=== PATIENT | female | born 1955 | race Caucasian/White ===

== ENCOUNTER 2021-07-01 10:10 | Inpatient (IN) | payer SELFPAY ==
[2021-07-01 11:10] LABS: #Lymphocytes 1.2 thou/uL (1.20-3.40); #Monocytes 0.6 thou/uL (0.11-0.59); #Neutrophils 2.8 thou/uL (1.40-6.50); %Basophils 0.5 % (0.0-1.0); %Eosinophils 0.5 % (0.0-10.0); %Lymphocytes 26.5 % (21.0-51.0); %Monocytes 12.1 % (0.0-10.0); %Neutrophils 60.4 % (42.0-75.0); Hemoglobin 9.2 g/dL (12.0-16.0); Mean Corpuscular HGB CONC 32.3 g/dL (32.0-36.0); Mean Corpuscular Hemoglobin 36.4 pg (27.0-31.0); Mean Platelet Volume 9.3 fL (7.4-10.4); Platelet Count 91 thou/uL (130-400); RBC Distribution Width 17.6 % (11.5-14.5); Red Blood Cell (RBC) Count 2.52 mill/uL (4.20-5.40); White Blood Cell (WBC) Count 4.6 thou/uL (4.8-10.8)
[2021-07-01 11:30] LABS: ALT (SGPT) 29 U/L (8-55); AST (SGOT) 62 U/L (5-34); Albumin 2.4 g/dL (3.4-4.8); Alkaline Phosphatase 97 U/L (40-110); Anion Gap 13 mmol/L (10-20); BUN (Urea Nitrogen) 20 mg/dL (9.8-20.1); Bilirubin, Total 5.7 mg/dL (0.2-1.2); Calc. Creatinine Clearance 0 mL/min (70-130); Calcium 8.7 mg/dL (7.8-10.44); Carbon Dioxide 21 mmol/L (23-31); Chloride 101 mmol/L (98-107); Globulin 4.5 g/dL (2.4-3.5); Glucose 100 mg/dL (80-115); Lipase 22 U/L (8-78); Potassium 4.1 mmol/L (3.5-5.1); Protein, Total 6.9 g/dL (5.8-8.1); Sodium 131 mmol/L (136-145)
[2021-07-01] MEDS ORDERED: Ondansetron PF 4 MG/2 ML Vial ONE (11:40)
[2021-07-01 11:44] LABS: MDiff Complete? YES; Macrocytosis MODERATE=16-30 cells (100X) (0-5/hpf); Platelet Morphology Comment Appears Decreased; Polychromasia MODERATE = 3-4 cells (100X) (0-2/hpf)
[2021-07-01 12:02] LABS: INR-International Normal Ratio 1.6; PTT 42.7 sec (22.9-36.1); Prothrombin Time 19.3 sec (12.0-14.7)
[2021-07-01 12:08] LABS: Anion Gap 15 mmol/L (10-20); BUN (Urea Nitrogen) 18 mg/dL (9.8-20.1); Calc. Creatinine Clearance 0 mL/min (70-130); Calcium 8.6 mg/dL (7.8-10.44); Carbon Dioxide 17 mmol/L (23-31); Chloride 101 mmol/L (98-107); Glucose 97 mg/dL (80-115); Potassium 4.3 mmol/L (3.5-5.1); Sodium 129 mmol/L (136-145)
[2021-07-01 12:32] LABS: CKMB 4.1 ng/mL (0-6.6)
[2021-07-01] MEDS ORDERED: Furosemide 20 MG/2 ML VIAL SLOW IVP SCH (14:15)
[2021-07-01] MEDS ORDERED: Ondansetron ODT 8 MG TAB SL PRN (14:15)
[2021-07-01] MEDS ORDERED: Furosemide 20 MG/2 ML VIAL ONE (14:40)
[2021-07-01 17:24] VITALS: BMI 39.8
[2021-07-01] MEDS: Albumin 25% 25 GM/100 ML BOT IVPB SCH (17:34)
[2021-07-01 19:39] LABS: SARS-CoV-2 PCR by NAA Not Detected (NotDetected)
[2021-07-01 21:14] LABS: Troponin I 0.041 ng/mL (< 0.028)
[2021-07-02] MEDS: Albumin 25% 25 GM/100 ML BOT IVPB SCH ×4 (00:23→17:23)
[2021-07-02] MEDS: Furosemide 20 MG/2 ML VIAL SLOW IVP SCH ×2 (05:13→14:10)
[2021-07-02 05:24] LABS: #Lymphocytes 0.8 thou/uL (1.20-3.40); #Monocytes 0.4 thou/uL (0.11-0.59); #Neutrophils 1.8 thou/uL (1.40-6.50); %Basophils 0.3 % (0.0-1.0); %Eosinophils 1.3 % (0.0-10.0); %Lymphocytes 27.4 % (21.0-51.0); %Monocytes 12.9 % (0.0-10.0); Hemoglobin 7.2 g/dL (12.0-16.0); Mean Corpuscular HGB CONC 33.4 g/dL (32.0-36.0); Mean Platelet Volume 9.6 fL (7.4-10.4); Platelet Count 66 thou/uL (130-400); White Blood Cell (WBC) Count 3.1 thou/uL (4.8-10.8)
[2021-07-02 05:44] LABS: ALT (SGPT) 21 U/L (8-55); AST (SGOT) 50 U/L (5-34); Albumin 2.5 g/dL (3.4-4.8); Alkaline Phosphatase 74 U/L (40-110); Anion Gap 12 mmol/L (10-20); BUN (Urea Nitrogen) 20 mg/dL (9.8-20.1); Bilirubin, Total 4.5 mg/dL (0.2-1.2); Calc. Creatinine Clearance 105 mL/min (70-130); Calcium 8.1 mg/dL (7.8-10.44); Carbon Dioxide 21 mmol/L (23-31); Chloride 103 mmol/L (98-107); Globulin 3.1 g/dL (2.4-3.5); Glucose 84 mg/dL (80-115); Potassium 3.7 mmol/L (3.5-5.1); Protein, Total 5.6 g/dL (5.8-8.1); Sodium 132 mmol/L (136-145)
[2021-07-02] MEDS: Spironolactone 25 MG TAB PO SCH (08:46)
[2021-07-03] MEDS ORDERED: HYDROcodone/Acetaminophen 5/325 mg Tablet PO SCH (02:53)
[2021-07-03] MEDS: Furosemide 20 MG/2 ML VIAL SLOW IVP SCH ×2 (05:56→15:17)
[2021-07-03] MEDS: Spironolactone 25 MG TAB PO SCH (08:48)
[2021-07-03 09:30] LABS: #Lymphocytes 0.8 thou/uL (1.20-3.40); #Monocytes 0.3 thou/uL (0.11-0.59); #Neutrophils 1.7 thou/uL (1.40-6.50); %Basophils 0.5 % (0.0-1.0); %Eosinophils 0.8 % (0.0-10.0); %Lymphocytes 28.8 % (21.0-51.0); %Monocytes 10.2 % (0.0-10.0); %Neutrophils 59.7 % (42.0-75.0); Hemoglobin 8.1 g/dL (12.0-16.0); Mean Corpuscular HGB CONC 32.6 g/dL (32.0-36.0); Mean Platelet Volume 9.5 fL (7.4-10.4); Platelet Count 73 thou/uL (130-400); RBC Distribution Width 17.8 % (11.5-14.5); Red Blood Cell (RBC) Count 2.18 mill/uL (4.20-5.40); White Blood Cell (WBC) Count 2.8 thou/uL (4.8-10.8)
[2021-07-03 09:47] LABS: Anion Gap 15 mmol/L (10-20); BUN (Urea Nitrogen) 18 mg/dL (9.8-20.1); Calc. Creatinine Clearance 104 mL/min (70-130); Calcium 8.6 mg/dL (7.8-10.44); Carbon Dioxide 21 mmol/L (23-31); Chloride 102 mmol/L (98-107); Glucose 91 mg/dL (80-115); Potassium 3.6 mmol/L (3.5-5.1); Sodium 134 mmol/L (136-145)
[2021-07-03 10:13] LABS: Band 2 % (5-11); Hypochromia SLIGHT = 6-15 cells (100X) (0-5/hpf); Lymphocytes 34 % (21-51); MDiff Complete? YES; Macrocytosis MODERATE=16-30 cells (100X) (0-5/hpf); Monocytes 5 % (0-10); Neutrophil 59 % (42-75); Nucleated RBC 1 % (0); Platelet Morphology Comment Appears Decreased; Polychromasia MODERATE = 3-4 cells (100X) (0-2/hpf)
[2021-07-04] MEDS: Furosemide 20 MG/2 ML VIAL SLOW IVP SCH (06:02)
[2021-07-04] MEDS: Spironolactone 25 MG TAB PO SCH (10:54)
[2021-07-04 13:27] VITALS: BP 116/60; TEMP 98
== END 2021-07-04 14:30 | disposition home or self-care (01) | DRG 432 ==
LOC: ERS 10:10 → ERHOLD 13:22 → SURG A 13:52 → 2NO 17:02
PROVIDERS: ADMIT Family Medicine; ATTEND Internal Medicine
DX: K74.60 Unspecified cirrhosis of liver (principal); I21.A1 Myocardial infarction type 2; Z66 Do not resuscitate; R18.8 Other ascites; E87.1 Hypo-osmolality and hyponatremia; D61.818 Other pancytopenia; F17.210 Nicotine dependence, cigarettes, uncomplicated; K75.81 Nonalcoholic steatohepatitis (NASH); G51.0 Bell's palsy; G89.29 Other chronic pain; E87.70 Fluid overload, unspecified; R13.10 Dysphagia, unspecified; E66.01 Morbid (severe) obesity due to excess calories; I95.9 Hypotension, unspecified; K11.7 Disturbances of salivary secretion; T42.6X5A Adverse effect of other antiepileptic and sedative-hypnotic drugs, initial encounter; Z20.822 Contact with and (suspected) exposure to COVID-19; Z68.41 Body mass index [BMI] 40.0-44.9, adult; Z88.8 Allergy status to other drugs, medicaments and biological substances; Z79.899 Other long term (current) drug therapy
CPT/HCPCS: 36415; 71045; 76705; 80048; 80053; 82140; 82553; 83690; 84484; 85025; 85610; 85730; 93005; 94760; 96374; J1940; J2405; P9047; U0003; U0005

== ENCOUNTER 2021-07-09 15:39 | Inpatient (IN) | payer SELFPAY ==
[2021-07-09 16:36] LABS: Hemoglobin 8.8 g/dL (12.0-16.0); Mean Corpuscular HGB CONC 32.4 g/dL (32.0-36.0); Mean Corpuscular Hemoglobin 36.9 pg (27.0-31.0); Mean Platelet Volume 10.4 fL (7.4-10.4); Platelet Count 80 thou/uL (130-400); RBC Distribution Width 18.6 % (11.5-14.5); Red Blood Cell (RBC) Count 2.37 mill/uL (4.20-5.40); White Blood Cell (WBC) Count 4.1 thou/uL (4.8-10.8)
[2021-07-09 16:49] LABS: INR-International Normal Ratio 2.1; Prothrombin Time 24.1 sec (12.0-14.7)
[2021-07-09 16:50] LABS: PTT 40.4 sec (22.9-36.1)
[2021-07-09 16:58] LABS: Anisocytosis SLIGHT = 6-15 cells (100X) (0-5/hpf); Band 23 % (5-11); Lymphocytes 6 % (21-51); MDiff Complete? YES; Macrocytosis MODERATE=16-30 cells (100X) (0-5/hpf); Metamyelocyte 1 % (0-0); Monocytes 10 % (0-10); Myelocyte 2 % (0-0); Neutrophil 58 % (42-75); Nucleated RBC 9 % (0); Ovalocytes SLIGHT = 2-5 cells (100X) (0-1/hpf); Platelet Morphology Comment Appears Decreased; Polychromasia MODERATE = 3-4 cells (100X) (0-2/hpf)
[2021-07-09] MEDS ORDERED: Cefepime 2 GM VIAL ONE (17:08)
[2021-07-09] MEDS ORDERED: Vancomycin 1 GM/200 ML BAG ONE (17:08)
[2021-07-09 17:10] LABS: ALT (SGPT) 27 U/L (8-55); AST (SGOT) 59 U/L (5-34); Albumin 2.8 g/dL (3.4-4.8); Alkaline Phosphatase 83 U/L (40-110); Anion Gap 27 mmol/L (10-20); BUN (Urea Nitrogen) 22 mg/dL (9.8-20.1); Bilirubin, Total 7.4 mg/dL (0.2-1.2); CK (CPK) 42 U/L (29-168); Calc. Creatinine Clearance 0 mL/min (70-130); Calcium 8.5 mg/dL (7.8-10.44); Chloride 98 mmol/L (98-107); Globulin 3.4 g/dL (2.4-3.5); Glucose 72 mg/dL (80-115); Lipase 52 U/L (8-78); Potassium 3.6 mmol/L (3.5-5.1); Protein, Total 6.2 g/dL (5.8-8.1); Sodium 130 mmol/L (136-145)
[2021-07-09 17:31] LABS: Carbon Dioxide 9 mmol/L (23-31)
[2021-07-09 17:35] LABS: CKMB 2.7 ng/mL (0-6.6)
[2021-07-09] MEDS ORDERED: Midazolam HCl 5 mg/ml Vial ONE ×2 (18:44→18:48)
[2021-07-09] MEDS ORDERED: Norepinephrine 8 MG/0.9% NS 250 ML ONE (18:44)
[2021-07-09] MEDS ORDERED: Midazolam HCl 2 mg/2 ml Vial ONE ×2 (18:49→21:22)
[2021-07-09] MEDS ORDERED: methylPREDNISolone Sod Succ/PF 125 MG/2 ML VIAL ONE (19:24)
[2021-07-09] MEDS ORDERED: Bupivacaine 0.25% HCL 30 ML VIAL ONE (20:10)
[2021-07-09] MEDS ORDERED: Lidocaine 1% w/Epinephrine 1:100K 20 ML VIAL ONE (20:10)
[2021-07-09] MEDS ORDERED: Fentanyl 100 MCG/2 ML VIAL ONE (20:22)
[2021-07-09] MEDS ORDERED: Famotidine/PF 20 mg/2ml Vial ONE ×2 (20:23→20:28)
[2021-07-09] MEDS ORDERED: Albumin 5% 500 ML ONE (20:23)
[2021-07-09 20:29] LABS: SARS-CoV-2 NAA Rapid Test Not Detected (NotDetected)
[2021-07-09] MEDS ORDERED: Phenylephrine 10 MG/ML VIAL ONE (20:29)
[2021-07-09 20:35] LABS: Lactic Acid 15.8 mmol/L (0.5-2.2)
[2021-07-09] MEDS ORDERED: Succinylcholine 200 MG/10 ml SYRINGE FS ONE (20:42)
[2021-07-09] MEDS ORDERED: Lidocaine 1% PF 5 ML VIAL ONE (20:42)
[2021-07-09] MEDS ORDERED: Rocuronium Bromide 10 MG/ML (10ML VIAL) ONE (20:42)
[2021-07-09] MEDS ORDERED: Calcium Chloride 1 GM/10 ML Abboject SYRINGE ONE (20:42)
[2021-07-09] MEDS ORDERED: Lidocaine 1% (PF) 30 ML VIAL ONE (20:59)
[2021-07-09] MEDS ORDERED: Ondansetron ODT 4 MG TAB PO PRN (21:05)
[2021-07-09] MEDS ORDERED: Ondansetron PF 4 MG/2 ML Vial IVP PRN (21:05)
[2021-07-09] MEDS ORDERED: Acetaminophen 325 MG TAB PO PRN (21:05)
[2021-07-09] MEDS ORDERED: Acetaminophen 650 MG Suppository PR PRN (21:05)
[2021-07-09] MEDS ORDERED: Sodium Bicarb 50 MEQ/50 ML Abboject 8.4% SYRINGE ONE ×2 (21:17→21:19)
[2021-07-09] MEDS ORDERED: Sodium Bicarbonate 2.5 MEQ/5 ML VIAL ONE (21:17)
[2021-07-09 23:01] LABS: Actual Bicarbonate (HCO3a) 12.5 mEq/L (22-28); Base Excess (BEa) -15.4 mEq/L (-2.0 to +3.0); CO2 Tension 38.5 mmHg (35.0-45.0); Calcium, Ionized (arterial) 1.08 mmol/L (1.12-1.30); Carboxyhemoglobin (COHb) 0.6 gm% (0.0-3.0); Hemoglobin (Hb) 7.7 g/dL (12.0-16.0); O2 Tension (PaO2), arterial 202.9 mmHg (> 80.0); Potassium - ABG Lab 3.66 mmol/L (3.70-5.30)
[2021-07-09 23:02] LABS: pH, Arterial 7.13 (7.35-7.45)
[2021-07-09 23:03] LABS: ALV-art Gradient 248.075 mmHg (0-20)
[2021-07-09] MEDS ORDERED: Ventilator Sedation Protocol 1 EACH FS SCH (23:30)
[2021-07-09] MEDS ORDERED: Fentanyl CADD 100 ML IV SCH (23:45)
[2021-07-09] MEDS ORDERED: Fentanyl BOLUS 250 ML IVPB PRN (23:45)
[2021-07-09] MEDS ORDERED: Propofol BOLUS 1,000 MG/100 ML VIAL IV PRN (23:45)
[2021-07-09] MEDS ORDERED: Morphine 2 MG/ML VIAL SLOW IVP PRN (23:45)
[2021-07-09] MEDS ORDERED: Lorazepam 2 MG/ML VIAL SLOW IVP PRN (23:45)
[2021-07-09] MEDS ORDERED: Propofol 1,000 MG/100 ML VIAL IV PRN (23:45)
[2021-07-09] MEDS ORDERED: DISCONTINUE PREVIOUS NARCOTIC PAIN MEDICATIONS AND BENZODIAZEPINES FS SCH (23:45)
[2021-07-09] MEDS ORDERED: MEROPENEM 1 GM/50 ML 1 GM in Premix Bag 1 BAG IVPB SCH (23:59)
[2021-07-10 00:39] LABS: ALT (SGPT) 32 U/L (8-55); AST (SGOT) 93 U/L (5-34); Albumin 2.6 g/dL (3.4-4.8); Alkaline Phosphatase 68 U/L (40-110); Anion Gap 29 mmol/L (10-20); BUN (Urea Nitrogen) 23 mg/dL (9.8-20.1); Bilirubin, Total 6.6 mg/dL (0.2-1.2); Calc. Creatinine Clearance 55 mL/min (70-130); Calcium 8.4 mg/dL (7.8-10.44); Carbon Dioxide 10 mmol/L (23-31); Chloride 99 mmol/L (98-107); Globulin 3.1 g/dL (2.4-3.5); Glucose 76 mg/dL (80-115); Potassium 3.8 mmol/L (3.5-5.1); Protein, Total 5.7 g/dL (5.8-8.1); Sodium 134 mmol/L (136-145)
[2021-07-10 00:54] LABS: Lactic Acid 17.3 mmol/L (0.5-2.2)
[2021-07-10 00:56] LABS: Hemoglobin 7.3 g/dL (12.0-16.0); Mean Corpuscular HGB CONC 31.8 g/dL (32.0-36.0); Mean Corpuscular Hemoglobin 37.7 pg (27.0-31.0); Mean Platelet Volume 10.9 fL (7.4-10.4); Platelet Count 81 thou/uL (130-400); RBC Distribution Width 19.4 % (11.5-14.5); Red Blood Cell (RBC) Count 1.95 mill/uL (4.20-5.40); White Blood Cell (WBC) Count 6.7 thou/uL (4.8-10.8)
[2021-07-10] MEDS: Vasopressin 20 UNIT, Admixture Fee 1 EACH in Sodium Chloride 0.9% 50 ML IV SCH ×2 (01:00→06:35)
[2021-07-10] MEDS ORDERED: Sodium Bicarb 50 MEQ/50 ML Abboject 8.4% SYRINGE IVP SCH (01:15)
[2021-07-10 01:17] LABS: CO2 Tension 37.3 mmHg (35.0-45.0); O2 Tension (PaO2), arterial 116.4 mmHg (> 80.0); pH, Arterial 7.04 (7.35-7.45)
[2021-07-10 01:18] LABS: Base Excess (BEa) -19.2 mEq/L (-2.0 to +3.0); Carboxyhemoglobin (COHb) 0.3 gm% (0.0-3.0); Hemoglobin (Hb) 7.7 g/dL (12.0-16.0)
[2021-07-10 01:19] LABS: ALV-art Gradient 122.175 mmHg (0-20); Calcium, Ionized (arterial) 1.08 mmol/L (1.12-1.30); Potassium - ABG Lab 3.84 mmol/L (3.70-5.30); Puncture Site ALINE
[2021-07-10] MEDS ORDERED: Sodium Chloride 0.9% 500 ML IV SCH ×4 (01:30→05:45)
[2021-07-10 01:36] LABS: Band 33 % (5-11); Burr Cells SLIGHT = 2-5 cells (100X) (0-1/hpf); Lymphocytes 7 % (21-51); MDiff Complete? YES; Macrocytosis MODERATE=16-30 cells (100X) (0-5/hpf); Metamyelocyte 6 % (0-0); Monocytes 5 % (0-10); Neutrophil 48 % (42-75); Nucleated RBC 5 % (0); Platelet Morphology Comment Appears Decreased; Polychromasia SLIGHT = 2-3 cells (100X) (0-2/hpf); Reactive Lymphocytes 1 % (0-10)
[2021-07-10] MEDS ORDERED: Sodium Bicarbonate 150 MEQ in Dextrose 5 %-0.45 % NaCl 1,000 ML IV SCH (02:00)
[2021-07-10] MEDS ORDERED: Dextrose 50% Abboject 50 ML SYRINGE ONE (02:13)
[2021-07-10 02:20] LABS: BUN (Urea Nitrogen) 14 mg/dL (9.8-20.1); Calc. Creatinine Clearance 109 mL/min (70-130); Carbon Dioxide Less than 8 mmol/L (23-31); Chloride 117 mmol/L (98-107); Glucose 47 mg/dL (80-115); Potassium 2.4 mmol/L (3.5-5.1); Sodium 139 mmol/L (136-145)
[2021-07-10] MEDS ORDERED: Dextrose 50% Abboject 50 ML SYRINGE SLOW IVP SCH (02:30)
[2021-07-10] MEDS ORDERED: Potassium Chloride 40 MEQ in Sodium Chloride 0.9% 250 ML 250 ML IVPB SCH (02:30)
[2021-07-10] MEDS: Norepinephrine 8 MG/0.9% NS 250 ML IVPB SCH ×3 (03:22→10:52)
[2021-07-10 04:58] LABS: ALT (SGPT) 36 U/L (8-55); AST (SGOT) 117 U/L (5-34); Albumin 2.6 g/dL (3.4-4.8); Alkaline Phosphatase 68 U/L (40-110); Anion Gap 32 mmol/L (10-20); BUN (Urea Nitrogen) 22 mg/dL (9.8-20.1); Bilirubin, Total 6.8 mg/dL (0.2-1.2); Calc. Creatinine Clearance 51 mL/min (70-130); Calcium 8.1 mg/dL (7.8-10.44); Carbon Dioxide 8 mmol/L (23-31); Chloride 99 mmol/L (98-107); Globulin 2.9 g/dL (2.4-3.5); Glucose 140 mg/dL (80-115); Potassium 4.3 mmol/L (3.5-5.1); Protein, Total 5.5 g/dL (5.8-8.1); Sodium 135 mmol/L (136-145)
[2021-07-10] MEDS ORDERED: EPINEPHrine 4 MG in Dextrose 5% in Water 250 ML IV SCH (05:00)
[2021-07-10 05:09] LABS: Lactic Acid 20.7 mmol/L (0.5-2.2)
[2021-07-10 05:43] LABS: Band 29 % (5-11); Hemoglobin 7.1 g/dL (12.0-16.0); Lymphocytes 4 % (21-51); MDiff Complete? YES; Mean Corpuscular HGB CONC 31.1 g/dL (32.0-36.0); Mean Corpuscular Hemoglobin 37.5 pg (27.0-31.0); Mean Platelet Volume 10.1 fL (7.4-10.4); Metamyelocyte 2 % (0-0); Monocytes 6 % (0-10); Neutrophil 59 % (42-75); Nucleated RBC 1 % (0); Platelet Count 108 thou/uL (130-400); Platelet Morphology Comment Appears Decreased; Polychromasia SLIGHT = 2-3 cells (100X) (0-2/hpf); Red Blood Cell (RBC) Count 1.88 mill/uL (4.20-5.40); Tear Drops SLIGHT = 2-5 cells (100X) (0-1/hpf); White Blood Cell (WBC) Count 8.7 thou/uL (4.8-10.8)
[2021-07-10] MEDS ORDERED: Vancomycin HCl 1.5 GM in Sodium Chloride 0.9% 250 ML 300 ML IVPB SCH (06:00)
[2021-07-10] MEDS: Phenylephrine 40 MG/NS 250 ML 40 MG in Premix Bag 1 BAG IVPB SCH ×2 (06:22→10:22)
[2021-07-10 08:26] LABS: Lactic Acid 22.4 mmol/L (0.5-2.2)
[2021-07-10] MEDS ORDERED: Hydrocortisone Sod Succ/PF 100 mg/2 ml Vial ONE (08:53)
[2021-07-10] MEDS ORDERED: Hydrocortisone Sod Succ/PF 100 mg/2 ml Vial IVP SCH ×2 (09:00→15:00)
[2021-07-10] MEDS ORDERED: Lactated Ringer's 500 ML IV SCH (09:00)
[2021-07-10] MEDS: MEROPENEM 1 GM/50 ML 1 GM in Premix Bag 1 BAG IVPB SCH ×2 (09:08→20:27)
[2021-07-10 09:14] LABS: Actual Bicarbonate (HCO3a) 5.6 mEq/L (22-28); Base Excess (BEa) -22.9 mEq/L (-2.0 to +3.0); Calcium, Ionized (arterial) 0.99 mmol/L (1.12-1.30); Carboxyhemoglobin (COHb) 0.3 gm% (0.0-3.0); Hemoglobin (Hb) 7.1 g/dL (12.0-16.0); O2 Tension (PaO2), arterial 129.3 mmHg (> 80.0); Potassium - ABG Lab 4.65 mmol/L (3.70-5.30)
[2021-07-10 09:15] LABS: CO2 Tension 20.4 mmHg (35.0-45.0); pH, Arterial 7.05 (7.35-7.45)
[2021-07-10 09:16] LABS: Puncture Site RRA
[2021-07-10] MEDS ORDERED: Sodium Bicarb 50 MEQ/50 ML Abboject 8.4% SYRINGE ONE (09:21)
[2021-07-10] MEDS ORDERED: Pantoprazole 40 MG VIAL IVP SCH (09:45)
[2021-07-10 11:31] VITALS: BP 75/37
[2021-07-10 11:50] VITALS: BMI 37.9
[2021-07-10] MEDS ORDERED: VANCOMYCIN 1.25 GM/250 ML BAG 1.25 GM in Premix Bag 1 BAG IVPB SCH (18:00)
[2021-07-10] MEDS ORDERED: Lorazepam 2 MG/ML VIAL SLOW IVP PRN (21:51)
[2021-07-10] MEDS ORDERED: Morphine 4 MG/ML VIAL SLOW IVP PRN (21:51)
[2021-07-10] MEDS ORDERED: Meropenem 1 GM in Sodium Chloride 0.9% 100 ML IVPB SCH (23:43)
[2021-07-11 06:39] VITALS: TEMP 98.8
[2021-07-11] MEDS ORDERED: Pantoprazole 40 MG VIAL IVP SCH (09:00)
[2021-07-13 11:13] LABS: Fungus Stain Final report (.); Fungus Stain Result 1 Yeast observed (.)
[2021-07-14 15:05] LABS: Actual Bicarbonate (HCO3a) 8.3 mEq/L (22-28); Analyzer IN Cardio OR; Base Excess (BEa) -20.3 mEq/L (-2.0 to +3.0); CO2 Tension 29.5 mmHg (35.0-45.0); Calcium, Ionized (arterial) 1.06 mmol/L (1.12-1.30); Carboxyhemoglobin (COHb) 0.9 gm% (0.0-3.0); Hemoglobin (Hb) 7.9 g/dL (12.0-16.0); O2 Tension (PaO2), arterial 281.2 mmHg (> 80.0); Potassium - ABG Lab 3.69 mmol/L (3.70-5.30)
[2021-07-14 15:13] LABS: Puncture Site Arterial Line; pH, Arterial 7.07 (7.35-7.45)
[2021-07-15 12:16] LABS: Fungus Stain Final report (.)
== END 2021-07-10 23:21 | disposition expired | DRG 853 ==
LOC: ERS 15:39 → SDC/OP 20:40 → CCU 21:02
PROVIDERS: ADMIT Student in an Organized Health Care Education/Training Program; ATTEND Student in an Organized Health Care Education/Training Program
PROC: 0X6 Anatomical Regions, Upper Extremities, Detachment (ICD-10-PCS; principal; 2021-07-09)
PROC: 3E033XZ Introduction of Vasopressor into Peripheral Vein, Percutaneous Approach (ICD-10-PCS; 2021-07-09)
PROC: 06HY33Z Insertion of Infusion Device into Lower Vein, Percutaneous Approach (ICD-10-PCS; 2021-07-09)
PROC: 0BH17EZ Insertion of Endotracheal Airway into Trachea, Via Natural or Artificial Opening (ICD-10-PCS; 2021-07-09)
PROC: 5A1935Z Respiratory Ventilation, Less than 24 Consecutive Hours (ICD-10-PCS; 2021-07-09)
DX: A41.9 Sepsis, unspecified organism (principal); R65.21 Severe sepsis with septic shock; M72.6 Necrotizing fasciitis; G93.41 Metabolic encephalopathy; N17.0 Acute kidney failure with tubular necrosis; I96 Gangrene, not elsewhere classified; I82.601 Acute embolism and thrombosis of unspecified veins of right upper extremity; D62 Acute posthemorrhagic anemia; E87.2 Acidosis; Z51.5 Encounter for palliative care; Z66 Do not resuscitate; K74.60 Unspecified cirrhosis of liver; G51.0 Bell's palsy; G89.29 Other chronic pain; K75.81 Nonalcoholic steatohepatitis (NASH); D69.59 Other secondary thrombocytopenia; D64.9 Anemia, unspecified; M54.5 Low back pain; F17.210 Nicotine dependence, cigarettes, uncomplicated; Z20.822 Contact with and (suspected) exposure to COVID-19; Z88.1 Allergy status to other antibiotic agents; Z88.8 Allergy status to other drugs, medicaments and biological substances; Z79.899 Other long term (current) drug therapy
CPT/HCPCS: 0240U; 36415; 36416; 36556; 36600; 70450; 71045; 80053; 82140; 82550; 82553; 82805; 83605; 83690; 83880; 84443; 84484; 85025; 85610; 85730; 86850; 86870; 86880; 86900; 86901; 86905; 86922; 87040; 87070; 87077; 87102; 87116; 87186; 87205; 87206; 88307; 88312; 93005; 94002; 94003; 96365; 96367; 96375; C9113; J0171; J0692; J1720; J2001; J2185; J2250; J2270; J2370; J2930; J3010; J3370; J3480; J7030; J7042; J7050; J7070; J7120; P9045; S0020; S0028